=== PATIENT | male | born 1965 | race Caucasian/White ===

== ENCOUNTER 2018-05-11 17:57 | Emergency (ER) | payer OTHER ==
[2018-05-11] MEDS ORDERED: LIDOCAINE 1% MPF 5 ML VIAL ONE (18:52)
[2018-05-11] MEDS ORDERED: TETANUS & DIPHTHERIA TOX,ADULT 0.5 ML VIAL ONE (18:52)
--- NOTE | 2018-05-11 20:00 | ER ---
Nurse's Notes [facility] Name: Avila Dailey Jr Age: 53 yrs Sex: Male : 1965 Arrival Date: 05/11/2018 Time: 18:01 Bed 7 Private MD: Dante Barry B Diagnosis: Laceration without foreign body of finger without damage to nail-Right Index and Middle Fingers Presentation: 05/11 18:20 Presenting complaint: Patient states: "I was trying a hang a piece of sheet metal on aj1 the wall and it flipped and I tried to grab it and it cut my index finger and my middle finger." Laceration noted to right index and middle fingers. Bleeding controlled. Transition of care: patient was not received from another setting of care. Onset of symptoms was May 11, 2018 at 17:30. Risk Assessment: Do you want to hurt yourself or someone else?. Initial Sepsis Screen: Does the patient meet any 2 criteria? No. Patient's initial sepsis screen is negative. Does the patient have a suspected source of infection? No. Patient's initial sepsis screen is negative. Care prior to arrival: None. 18:20 Method Of Arrival: Ambulatory [facility] 18:20 Acuity: ESTEFANY 4 aj1 Triage Assessment: 18:26 General: Appears in no apparent distress. comfortable, Behavior is calm, cooperative, aj1 appropriate for age. Pain: Complains of pain in right hand Pain currently is 7 out of 10 on a pain scale. Neuro: Level of Consciousness is awake, alert, obeys commands. Cardiovascular: Patient's skin is warm and dry. Respiratory: Airway is patent Respiratory effort is even, unlabored, Respiratory pattern is regular, symmetrical. Injury Description: Laceration sustained to palmar aspect of distal phalanx of right middle finger and palmar aspect of distal phalanx of right index finger. Historical: - Allergies: 18:26 Sulfa (Sulfonamide Antibiotics); aj1 - Home Meds: 18:26 losartan oral oral [Active]; Lexapro Oral [Active]; aj1 - PMHx: 18:26 Hypertension; aj1 - PSHx: 18:26 Hernia repair; aj1 - Immunization history:: Last tetanus immunization: < 10 years ago. - Social history:: Smoking status: Patient/guardian denies using tobacco. - Ebola Screening: : Patient denies travel to an Ebola-affected area in the 21 days before illness onset. Screenin:41 Abuse screen: Denies threats or abuse. Denies injuries from another. Nutritional bp screening: No deficits noted. Tuberculosis screening: No symptoms or risk factors identified. Fall Risk None identified. Assessment: 18:30 General: Appears in no apparent distress. comfortable, Behavior is calm, cooperative, bp appropriate for age. Pain: Complains of pain in palmar aspect of distal phalanx of right index finger and palmar aspect of distal phalanx of right middle finger and right hand. Neuro: Level of Consciousness is awake, alert, obeys commands, Oriented to person, place, time, situation, Appropriate for age. Cardiovascular: No deficits noted. Respiratory: Airway is patent Respiratory effort is even, unlabored, Respiratory pattern is regular, symmetrical. GI: No signs and/or symptoms were reported involving the gastrointestinal system. : No signs and/or symptoms were reported regarding the genitourinary system. EENT: No deficits noted. Derm: Skin is pink, warm \\T\\ dry. Musculoskeletal: Circulation, motion, and sensation intact. Range of motion: intact in all extremities. Injury Description: Laceration sustained to palmar aspect of middle phalanx of right ring finger, palmar aspect of middle phalanx of right middle finger and palmar aspect of middle phalanx of right index finger is full thickness, 0.5 to 2.5 cm long, not bleeding. 19:22 Reassessment: Patient appears in no apparent distress at this time. Patient and/or jb4 family updated on plan of care and expected duration. Pain level reassessed. Patient is alert, oriented x 3, equal unlabored respirations, skin warm/dry/pink. Physician is at the bedside administering medications to affected area. 20:27 Reassessment: Patient appears in no apparent distress at this time. Patient and/or jb4 family updated on plan of care and expected duration. Pain level reassessed. Patient is alert, oriented x 3, equal unlabored respirations, skin warm/dry/pink. Discussed D/c, F/u with pt, denies questions or concerns. Vital Signs: 18:26 BP 141 / 97; Pulse 75; Resp 18; Temp 97.2; Pulse Ox 98% on R/A; Weight 102.06 kg (R); aj1 Height 6 ft. 0 in. (182.88 cm) (R); Pain 7/10; 18:30 BP 134 / 97; Pulse 71; Resp 14; Pulse Ox 98% ; bp 19:15 BP 122 / 90; Pulse 70; Resp 18; Pulse Ox 97% on R/A; jb4 20:15 BP 129 / 87; Pulse 66; Resp 18; Pulse Ox 97% ; jb4 18:26 Body Mass Index 30.52 (102.06 kg, 182.88 cm) aj1 ED Course: 18:01 Patient arrived in ED. mr 18:02 Dante Barry MD is Private Physician. mr 18:25 Triage completed. aj1 18:26 Arm band placed on Patient placed in an exam room. aj1 18:30 Blas Gutierrez PA is PHCP. cp 18:30 Tim Lemus MD is Attending Physician. cp 18:37 Dg Humphrey RN is Primary Nurse. bp 18:41 Patient has correct armband on for positive identification. Bed in low position. Call bp light in reach. Side rails up X2. Adult w/ patient. 18:41 Wound care: to laceration located on palmar aspect of middle phalanx of right index bp finger and palmar aspect of middle phalanx of right middle finger and palmar aspect of middle phalanx of right ring finger was cleaned with Betadine, soaked in Betadine solution. 19:00 Pulse ox on. NIBP on. jb4 19:18 X-ray completed. Portable x-ray completed in exam room. Patient tolerated procedure tm4 well. 19:21 XRAY Hand RIGHT 3 View In Process Unspecified. EDMS 20:00 Assist provider with laceration repair on palmar aspect of middle phalanx of right jb4 middle finger and palmar aspect of middle phalanx of right index finger that was 2.5 cm. or less using sutures. Set up tray. Performed by Blas HUITRON Dressed with Xeroform, Patient tolerated well. 20:15 Patient did not have IV access during this emergency room visit. jb4 Administered Medications: 18:49 Drug: Lidocaine (1 %) 10 ml {Note: AT B/S FOR PROVIDER.} Volume: 5 ml; Route: bp Infiltration; 18:49 Drug: Tetanus-Diphtheria Toxoid Adult 0.5 ml {Tableau Report Developer: [employer]. Exp: bp 07/09/2020. Lot #: [id number]. } Route: IM; Site: right deltoid; 18:50 Follow up: Response: No adverse reaction bp Outcome: 19:59 Discharge ordered by . mary 20:15 Discharged to home ambulatory. jb4 20:15 Condition: stable 20:15 Discharge instructions given to patient, Instructed on discharge instructions, follow up and referral plans. medication usage, Demonstrated understanding of instructions, follow-up care, medications, Prescriptions given X 2. 20:30 Patient left the ED. jb4 Signatures: Dispatcher [employer] EDMS Deysi Gary, RN RN ajMonalisa Sullivan mr Christy Leonela tm4 Blas Gutierrez PA PA cp Baxter, Heather, RN RN Rogerio Buchanan RN RN jb4 Dg Humphrey, RN RN bp
--- NOTE | 2018-05-11 20:00 | EDPHYS ---
Physician Documentation [facility] Name: Avila Dailey Jr Age: 53 yrs Sex: Male : 1965 Arrival Date: 05/11/2018 Time: 18:01 Bed 7 Private MD: Dante Barry B ED Physician Tim Lemus HPI: 05/11 18:41 This 53 yrs old Male presents to ER via Ambulatory with complaints of Finger cp laceration. 18:41 The patient or guardian reports a laceration. The complaints affect the palmar aspect cp of middle phalanx of right middle finger and palmar aspect of distal phalanx of right index finger. 18:41 Context: resulted from sharp metal edge. Onset: The symptoms/episode began/occurred cp just prior to arrival. Associated signs and symptoms: Pertinent negatives: cyanosis distally, decreased sensation distally. Severity of symptoms: in the emergency department the symptoms are unchanged, despite home interventions. Historical: - Allergies: 18:26 Sulfa (Sulfonamide Antibiotics); aj1 - Home Meds: 18:26 losartan oral oral [Active]; Lexapro Oral [Active]; aj1 - PMHx: 18:26 Hypertension; aj1 - PSHx: 18:26 Hernia repair; aj1 - Immunization history:: Last tetanus immunization: < 10 years ago. - Social history:: Smoking status: Patient/guardian denies using tobacco. - Ebola Screening: : Patient denies travel to an Ebola-affected area in the 21 days before illness onset. ROS: 18:45 Constitutional: Negative for body aches, chills, fever, poor PO intake. cp 18:45 Eyes: Negative for injury, pain, redness, and discharge. cp 18:45 Cardiovascular: Negative for chest pain, edema, palpitations. cp 18:45 Respiratory: Negative for cough, shortness of breath, wheezing. cp 18:45 Abdomen/GI: Negative for abdominal pain, nausea and vomiting, diarrhea, constipation. 18:45 Skin: Positive for laceration(s), of the right hand. 18:45 Neuro: Negative for numbness, weakness. 18:45 All other systems are negative. Exam: 18:55 Constitutional: The patient appears in no acute distress, alert, awake, non-toxic, well cp developed, well nourished. 18:55 Head/Face: Normocephalic, atraumatic. cp 18:55 Eyes: Periorbital structures: appear normal, Conjunctiva: normal, no exudate, no injection, Sclera: no appreciated abnormality, Lids and lashes: appear normal, bilaterally. 18:55 ENT: External ear(s): are unremarkable, Nose: is normal, Mouth: Lips: moist, Oral mucosa: moist, Posterior pharynx: is normal, airway is patent. 18:55 Neck: ROM/movement: is normal, is supple, without pain, no range of motions limitations, no nuchal rigidity. 18:55 Chest/axilla: Inspection: normal. 18:55 Cardiovascular: Rate: normal. 18:55 Respiratory: the patient does not display signs of respiratory distress, Respirations: normal, no use of accessory muscles, no retractions, no splinting, no tachypnea. 18:55 Abdomen/GI: Inspection: abdomen appears normal. 18:55 Musculoskeletal/extremity: Sensation intact. 18:55 Musculoskeletal/extremity: ROM: full active range of motion, in the right index and right middle fingers, Perfusion: the extremity is normally perfused throughout, Tendon exam: specific tendon testing normal through active and passive range of motion 18:55 Skin: injury, laceration(s), the wound is approximately 2 cm(s), of the palmar aspect of distal phalanx of right index finger, the second wound is approximately 2 cm(s), of the palmar aspect of middle phalanx of right middle finger, that can be described as clean, no foreign body, linear, with mild bleeding. Vital Signs: 18:26 BP 141 / 97; Pulse 75; Resp 18; Temp 97.2; Pulse Ox 98% on R/A; Weight 102.06 kg (R); aj1 Height 6 ft. 0 in. (182.88 cm) (R); Pain 7/10; 18:30 BP 134 / 97; Pulse 71; Resp 14; Pulse Ox 98% ; bp 19:15 BP 122 / 90; Pulse 70; Resp 18; Pulse Ox 97% on R/A; jb4 20:15 BP 129 / 87; Pulse 66; Resp 18; Pulse Ox 97% ; jb4 18:26 Body Mass Index 30.52 (102.06 kg, 182.88 cm) aj1 Laceration: 19:45 Wound Repair of 4cm ( 1.6in ) subcutaneous laceration to palmar aspect of middle cp phalanx of right middle finger and palmar aspect of distal phalanx of right index finger. Linear shaped.. Distal neuro/vascular/tendon intact. Anesthesia: Wound infiltrated with 8 mls of 1% lidocaine. Wound prep: Moderate cleansing by me, Wound irrigation by me. Skin closed with 10 5-0 Prolene using interrupted sutures and sterile technique. Dressed with Bacitracin, tube gauze, finger splints. Patient tolerated well. MDM: 18:30 Patient medically screened. cp 19:57 Data reviewed: vital signs, nurses notes, radiologic studies, plain films. cp 19:57 Differential diagnosis: open fracture, simple laceration, tendon injury. Test cp interpretation: by ED physician or midlevel provider: plain radiologic studies. Counseling: I had a detailed discussion with the patient and/or guardian regarding: the historical points, exam findings, and any diagnostic results supporting the discharge/admit diagnosis, radiology results, the need for outpatient follow up, a family practitioner, to return to the emergency department if symptoms worsen or persist or if there are any questions or concerns that arise at home. Response to treatment: the patient's symptoms have markedly improved after treatment, and as a result, I will discharge patient. Special discussion: Wound care and monitor for signs of infection. 05/11 18:38 Order name: XRAY Hand RIGHT 3 View 05/11 18:41 Order name: Prolene, Sutures: 5-0; Complete Time: 18:51 cp 05/11 18:41 Order name: Dressing - Wound; Complete Time: 20:27 cp 05/11 18:41 Order name: Gloves, Sterile; Complete Time: 20:06 cp 05/11 18:41 Order name: Setup Suture Tray; Complete Time: 18:50 cp 05/11 19:57 Order name: Wound dressing; Complete Time: 20:26 cp 05/11 19:57 Order name: Finger Splint; Complete Time: 20:26 cp Administered Medications: 18:49 Drug: Lidocaine (1 %) 10 ml {Note: AT B/S FOR PROVIDER.} Volume: 5 ml; Route: bp Infiltration; 18:49 Drug: Tetanus-Diphtheria Toxoid Adult 0.5 ml {Director Statistical Programming: [employer]. Exp: 07/09/2020. Lot #: [id number]. } Route: IM; Site: right deltoid; 18:50 Follow up: Response: No adverse reaction bp Disposition: 05/11/18 19:59 Discharged to Home. Impression: Laceration without foreign body of finger without damage to nail - Right Index and Middle Fingers. - Condition is Stable. - Discharge Instructions: Laceration Care, Adult. - Prescriptions for Keflex 500 mg Oral Capsule - take 1 capsule by ORAL route every 8 hours for 10 days; 30 capsule. Tramadol 50 mg Oral Tablet - take 1 tablet by ORAL route every 8 hours as needed; 12 tablet. - Medication Reconciliation Form, Thank You Letter, Antibiotic Education, Prescription Opioid Use form. - Follow up: Private Physician; When: 10 - 14 days; Reason: Staple/Suture removal. - Problem is new. - Symptoms have improved. Addendum: 05/14/2018 07:56 Co-signature as Attending Physician, Tim Lemus MD I agree with the assessment and k dr plan of care. Signatures: Dispatcher [employer] EDMS Deysi Gary RN RN aj1 Tim Lemus MD MD kdr Blas Gutierrez PA PA cp Rogerio Gary, RN RN jb4 Dg Humphrey RN RN bp Corrections: (The following items were deleted from the chart) 05/11 20:30 19:59 05/11/2018 19:59 Discharged to Home. Impression: Laceration without foreign body jb4 of finger without damage to nail - Right Index and Middle Fingers. Condition is Stable. Forms are Medication Reconciliation Form, Thank You Letter, Antibiotic Education, Prescription Opioid Use. Follow up: Private Physician; When: 10 - 14 days; Reason: Staple/Suture removal. Problem is new. Symptoms have improved. cp
--- NOTE | 2018-05-11 20:31 | RAD REPORT ---
EXAM DESCRIPTION: RAD - Hand Right 3 View - 05/11/2018 7:21 pm CLINICAL HISTORY: Hand pain, blunt force trauma, index finger laceration and middle finger laceratio n COMPARISON: None. FINDINGS: No fracture is identified. There is no dislocation or periosteal reaction noted. Ventral angulation deformity of the fifth metacarpal is from old fracture. No air or foreign body in the soft tissues. IMPRESSION: Negative right hand examination for acute bone, joint or soft tissue finding.
== END 2018-05-11 20:30 | disposition home or self-care (01) ==
LOC: ER 17:57
PROC: 0JQJ0ZZ Repair Right Hand Subcutaneous Tissue and Fascia, Open Approach (ICD-10-PCS; principal; 2018-05-11)
DX: S61.210A Laceration without foreign body of right index finger without damage to nail, initial encounter (principal); S61.212A Laceration without foreign body of right middle finger without damage to nail, initial encounter; W26.8XXA Contact with other sharp object(s), not elsewhere classified, initial encounter; Y93.9 Activity, unspecified; Y92.9 Unspecified place or not applicable
CPT/HCPCS: 90714; 99284

== ENCOUNTER 2019-04-26 10:50 | Emergency (ER) | payer OTHER ==
--- NOTE | 2019-04-26 11:43 | RAD REPORT ---
EXAM DESCRIPTION: CT - Head Brain Wo Cont - 04/26/2019 11:34 am CLINICAL HISTORY: Blunt force trauma to the head, headache COMPARISON: None. TECHNIQUE: Axial 5 mm thick images of the head were obtained without IV contrast. All CT scans are performed using dose optimization technique as appropriate and may include automated exposure control or mA/KV adjustment according to patient size. FINDINGS: No intracranial hemorrhage, mass, edema or shift of mid-line structures. No acute infarcti on changes seen. No abnormal extra-axial fluid collections. Ventricles are normal. Mastoid air cells and visualized portions of the paranasal sinuses are clear. No acute bony findings. IMPRESSION: Negative non-contrast CT head examination.
--- NOTE | 2019-04-26 11:49 | ER ---
Nurse's Notes [facility] Name: Avila Dailey Jr Age: 54 yrs Sex: Male : 1965 Arrival Date: 04/26/2019 Time: 10:51 Bed 18 Private MD: Dante Barry B Diagnosis: Concussion Presentation: 04/26 11:08 Presenting complaint: Patient states: "Saturday I was mowing under a wooden swing set and aj1 the swing caught on the mower and it the swing hit me on the side of the head. I didn't black out or anything, but I have been having really bad headaches, and dizziness, and nausea. Like if I move my eyes too quickly it hurts. I just generally don't feel right". Transition of care: patient was not received from another setting of care. Onset of symptoms was April 26, 2019. Risk Assessment: Do you want to hurt yourself or someone else? Patient reports no desire to harm self or others. Initial Sepsis Screen: Does the patient meet any 2 criteria? No. Patient's initial sepsis screen is negative. Does the patient have a suspected source of infection? No. Patient's initial sepsis screen is negative. Care prior to arrival: None. 11:08 Method Of Arrival: Ambulatory aj1 11:08 Acuity: ESTEFANY 3 aj1 Triage Assessment: 11:10 Headache History: Denies prior headaches. General: Appears in no apparent distress. aj1 comfortable, Behavior is calm, cooperative, appropriate for age. Pain: Complains of pain in right orthodox, left orthodox and occipital area Pain currently is 8 out of 10 on a pain scale. Quality of pain is described as pressure, Pain began 2-3 days ago. Also complains of nausea, dizziness. Neuro: Level of Consciousness is awake, alert, obeys commands, Oriented to person, place, time, situation, Moves all extremities. Full function Gait is steady, Speech is normal, Facial symmetry appears normal. Cardiovascular: Patient's skin is warm and dry. Respiratory: Airway is patent Respiratory effort is even, unlabored, Respiratory pattern is regular, symmetrical. Historical: - Allergies: 11:10 Sulfa (Sulfonamide Antibiotics); aj1 - Home Meds: 11:10 losartan 50 mg oral tab once daily [Active]; aj1 - PMHx: 11:10 Hypertension; aj1 - Immunization history:: Flu vaccine is up to date. - Social history:: Smoking status: Patient/guardian denies using tobacco. - Ebola Screening: : Patient denies travel to an Ebola-affected area in the 21 days before illness onset. Screenin:23 Abuse screen: Denies threats or abuse. Nutritional screening: No deficits noted. em Tuberculosis screening: No symptoms or risk factors identified. Fall Risk None identified. Assessment: 11:23 General: Appears in no apparent distress. comfortable, Behavior is calm, cooperative, em Denies fever. Pain: Complains of pain in occipital area and left orthodox and right orthodox Pain currently is 4 out of 10 on a pain scale. Quality of pain is described as pressure, Pain began 2-3 days ago. Neuro: Level of Consciousness is awake, alert, obeys commands, Oriented to person, place, time, situation, Appropriate for age Reports dizziness, headache photophobia weakness Denies blurred vision paresthesias numbness syncope . Cardiovascular: Capillary refill < 3 seconds Patient's skin is warm and dry. Respiratory: Airway is patent Respiratory effort is even, unlabored, Respiratory pattern is regular, symmetrical. GI: Abdomen is flat, Reports nausea, Patient currently denies vomiting. Derm: Skin is intact, is healthy with good turgor, Skin is pink, warm \\T\\ dry. Musculoskeletal: Capillary refill < 3 seconds, Range of motion: intact in all extremities. 11:35 Reassessment: i agree with previous assessment. Vital Signs: 11:10 BP 141 / 80; Pulse 73; Resp 18; Temp 97.7; Pulse Ox 98% on R/A; Weight 102.06 kg (R); aj1 Height 6 ft. 0 in. (182.88 cm) (R); 11:10 Body Mass Index 30.52 (102.06 kg, 182.88 cm) aj1 ED Course: 10:52 Patient arrived in ED. as 10:52 Dante Barry MD is Private Physician. as 11:09 Triage completed. aj1 11:10 Arm band placed on Patient placed in an exam room. aj1 11:11 Pierre Gonzalez PA is PHCP. jr8 11:11 Thad Gar MD is Attending Physician. jr8 11:13 Wylie, Mario, MOTORCYCLE SERVICE TECHNICIAN is Primary Nurse. em 11:23 Patient has correct armband on for positive identification. Bed in low position. Call em light in reach. Pulse ox on. NIBP on. 11:34 CT completed. Patient tolerated procedure well. Patient moved back from CT. bq 11:34 Head Brain Wo Cont CT In Process Unspecified. EDMS 12:00 No provider procedures requiring assistance completed. Patient did not have IV access em during this emergency room visit. Administered Medications: No medications were administered Outcome: :49 Discharge ordered by MD. salguero 12:00 Discharged to home ambulatory. em 12:00 Condition: good 12:00 Discharge instructions given to patient, Instructed on discharge instructions, follow up and referral plans. medication usage, Demonstrated understanding of instructions, follow-up care, medications, Prescriptions given X 2. 12:00 Patient left the ED. em Signatures: Dispatcher [employer] EDMS Deysi Gary, RN RN aj1 Lorena Harris Edgar, MOTORCYCLE SERVICE TECHNICIAN MOTORCYCLE SERVICE TECHNICIAN em Talia Gillette Josh, PA PA jr8 Altagracia Garcia RN RN
--- NOTE | 2019-04-26 11:49 | EDPHYS ---
Physician Documentation [facility] Name: Avila Dailey Jr Age: 54 yrs Sex: Male : 1965 Arrival Date: 04/26/2019 Time: 10:51 Bed 18 Private MD: Dante Barry B ED Physician Thad Gar HPI: 04/26 11:43 This 54 yrs old Male presents to ER via Ambulatory with complaints of jr8 Headache - injury x2 days ago, Nausea. 11:43 The patient complains of pain to the right yazidism. The patient describes the headache jr8 as constant. Onset: The symptoms/episode began/occurred 2 day(s) ago. Associated signs and symptoms: Pertinent positives: dizziness, nausea, Pertinent negatives: altered mental status, fever, malaise, neck stiffness, paresthesias, Photophobia vision changes, vision loss, vomiting. Severity of symptoms: At its worst the pain was mild, in the emergency department the pain is unchanged. Pt had a piece of wood from a swingset hit his head while mowing, denies loc, states he has had a MULTANI since then with some mild nausea and feeling uneasy. . Historical: - Allergies: 11:10 Sulfa (Sulfonamide Antibiotics); aj1 - Home Meds: 11:10 losartan 50 mg oral tab once daily [Active]; aj1 - PMHx: 11:10 Hypertension; aj1 - Immunization history:: Flu vaccine is up to date. - Social history:: Smoking status: Patient/guardian denies using tobacco. - Ebola Screening: : Patient denies travel to an Ebola-affected area in the 21 days before illness onset. ROS: 11:43 Constitutional: Negative for fever, chills, and weight loss, Eyes: Negative for injury, jr8 pain, redness, and discharge, ENT: Negative for injury, pain, and discharge, Neck: Negative for injury, pain, and swelling, Cardiovascular: Negative for chest pain, palpitations, and edema, Respiratory: Negative for shortness of breath, cough, wheezing, and pleuritic chest pain, Abdomen/GI: Negative for abdominal pain, nausea, vomiting, diarrhea, and constipation, Back: Negative for injury and pain, MS/Extremity: Negative for injury and deformity. 11:43 Neuro: Positive for headache, Negative for altered mental status, dizziness, gait disturbance, numbness, seizure activity, syncope, near syncope, tingling, visual changes, weakness. Exam: 11:43 Constitutional: This is a well developed, well nourished patient who is awake, alert, jr8 and in no acute distress. Head/Face: Normocephalic, atraumatic. Eyes: Pupils equal round and reactive to light, extra-ocular motions intact. Lids and lashes normal. Conjunctiva and sclera are non-icteric and not injected. Cornea within normal limits. Periorbital areas with no swelling, redness, or edema. ENT: Nares patent. No nasal discharge, no septal abnormalities noted. Tympanic membranes are normal and external auditory canals are clear. Oropharynx with no redness, swelling, or masses, exudates, or evidence of obstruction, uvula midline. Mucous membranes moist. Neck: Trachea midline, no thyromegaly or masses palpated, and no cervical lymphadenopathy. Supple, full range of motion without nuchal rigidity, or vertebral point tenderness. No Meningismus. Chest/axilla: Normal chest wall appearance and motion. Nontender with no deformity. No lesions are appreciated. Cardiovascular: Regular rate and rhythm with a normal S1 and S2. No gallops, murmurs, or rubs. Normal PMI, no JVD. No pulse deficits. Respiratory: Lungs have equal breath sounds bilaterally, clear to auscultation and percussion. No rales, rhonchi or wheezes noted. No increased work of breathing, no retractions or nasal flaring. Abdomen/GI: Soft, non-tender, with normal bowel sounds. No distension or tympany. No guarding or rebound. No evidence of tenderness throughout. Skin: Warm, dry with normal turgor. Normal color with no rashes, no lesions, and no evidence of cellulitis. MS/ Extremity: Pulses equal, no cyanosis. Neurovascular intact. Full, normal range of motion. 11:43 Neuro: Orientation: is normal, Mentation: is normal, Cranial nerves: CN II- XII are normal as tested, Cerebellar function: is grossly normal, Motor: is normal, Sensation: is normal, Gait: is steady. Vital Signs: 11:10 BP 141 / 80; Pulse 73; Resp 18; Temp 97.7; Pulse Ox 98% on R/A; Weight 102.06 kg (R); aj1 Height 6 ft. 0 in. (182.88 cm) (R); 11:10 Body Mass Index 30.52 (102.06 kg, 182.88 cm) aj1 MDM: 11:34 Patient medically screened. jr8 11:46 Data reviewed: vital signs, nurses notes, radiologic studies. Data interpreted: Pulse jr8 oximetry: on room air is 98 %. Interpretation: normal. Counseling: I had a detailed discussion with the patient and/or guardian regarding: the historical points, exam findings, and any diagnostic results supporting the discharge/admit diagnosis, radiology results. ED course: CT normal, discussed need for outpatient FU with PCP or neurology. Return precautions given. 04/26 11:20 Order name: Head Brain Wo Cont CT; Complete Time: 11:45 em Administered Medications: No medications were administered Disposition: 12:17 Co-signature as Attending Physician, Thad Gar MD. rn Disposition: 04/26/19 11:49 Discharged to Home. Impression: Concussion. - Condition is Stable. - Discharge Instructions: Concussion, Adult. - Prescriptions for Meclizine 25 mg Oral Tablet - take 1 tablet by ORAL route every 8 hours As needed; 30 tablet. Zofran 4 mg Oral Tablet - take 1 tablet by ORAL route every 12 hours As needed; 20 tablet. - Work release form, Medication Reconciliation Form, Thank You Letter form. - Follow up: Private Physician; When: As needed; Reason: Recheck today's complaints, Re-evaluation by your physician. - Problem is new. - Symptoms are unchanged. Signatures: Dispatcher [employer] Deysi Potter RN RN aj1 Mario Wylie, STEAM PRESS TENDER STEAM PRESS TENDER em Thad Gar MD MD rn Roszak, Josh, PA PA jr8 Corrections: (The following items were deleted from the chart) 12:00 11:49 04/26/2019 11:49 Discharged to Home. Impression: Concussion. Condition is Stable. em Forms are Medication Reconciliation Form, Thank You Letter, Antibiotic Education, Prescription Opioid Use. Follow up: Private Physician; When: As needed; Reason: Recheck today's complaints, Re-evaluation by your physician. Problem is new. Symptoms are unchanged. jr8
[2019-04-26 12:20] VITALS: BP 141/80; TEMP 97.7; O2SAT 98
== END 2019-04-26 12:00 | disposition home or self-care (01) ==
LOC: ER 10:50
DX: S06.0X9A Concussion with loss of consciousness of unspecified duration, initial encounter (principal); W20.8XXA Other cause of strike by thrown, projected or falling object, initial encounter; Y93.H9 Activity, other involving exterior property and land maintenance, building and construction; Y92.9 Unspecified place or not applicable; Z88.2 Allergy status to sulfonamides; I10 Essential (primary) hypertension
CPT/HCPCS: 70450; 99284